=== PATIENT | female | born 1975 | race Caucasian/White ===

== ENCOUNTER 2018-08-29 19:44 | Emergency (ER) | payer OTHER ==
--- NOTE | 2018-08-29 20:13 | EDPHY ---
H & P Time Seen by Provider: 08/29/18 19:55 HPI/ROS: CHIEF COMPLAINT: Right arm redness History by patient HISTORY OF PRESENT ILLNESS: 43-year-old woman [id number] presents complaining of a arm redness and swelling. Patient states that she has and played trauma for routine lab checks 4 days prior to arrival. She noticed 1 day ago some redness and swelling around her hand and wrist and then this has progressed over the past 24 hr to include red streaking up her arm towards the site of the blood draw. She complains of some mild itching but no pain. She denies any fever, chills, nausea or vomiting. She has a history of open fracture and her right ring finger which was complicated by a Pseudomonas infection several years ago. She is concerned that the infection may have been reactivated in her hand. REVIEW OF SYSTEMS: As in HPI, and all other systems reviewed and are negative Smoking Status: Current every day smoker Physical Exam: General Appearance: Alert and no distress. Head: Normocephalic, atraumatic Eyes: Pupils equal and round no injection. Extraocular movements are intact. Musculoskeletal: Neck is supple and nontender. Extremities: Right arm with lymphangitis in the forearm extending from the wrist towards but not reaching the AC. There is some mild swelling and redness and warmth on the dorsum never hand and wrist area which is nontender. She has full range of motion of her wrist elbow at all fingers. Distal sensation is intact. Distal cap refills less than 2 sec. Radial pulses 2+ and equal to the left. There is no obvious thumb lesion or area of swelling or erythema in her AC where she says the blood draw was done. Skin: No rashes or lesions except as described above. No axillary lymph nodes. Constitutional: Initial Vital Signs Temperature (C) 37.3 C 08/29/18 19:51 Heart Rate 98 08/29/18 19:51 Respiratory Rate 16 08/29/18 19:51 Blood Pressure 142/116 H 08/29/18 19:51 O2 Sat (%) 94 08/29/18 19:51 O2 Delivery Mode Room Air Allergies/Adverse Reactions: acetaminophen [From Vicodin] Allergy (Verified 08/29/18 19:54) Pt reports rash and SOB cephalexin Allergy (Verified 08/29/18 19:54) Pt reports rash and SOB hydrocodone bitartrate [From Vicodin] Allergy (Verified 08/29/18 19:54) Pt reports rash and SOB Home Medications: Medication Instructions Recorded Clindamycin HCl [Clindamycin] 300 mg PO TID #30 cap 08/29/18 MDM/Departure - MDM Medications Given: Discontinued Medications Clindamycin (Cleocin 150 Mg Prepack#6) 1 btl TAKEHOME EDNOW ONE PRN Reason: Protocol Stop: 08/29/18 20:17 Last Admin: 08/29/18 20:23 Dose: 1 btl ED Course/Re-evaluation: 43-year-old woman presents with mild cellulitis of right hand and lower forearm. Patient is afebrile nontoxic-appearing. This point appears safe to treat her as an outpatient with close follow-up. Patient is started on clindamycin as she is allergic to Keflex. We discussed return precautions. Patient has been seen by Dr. Benson at [facility] and I recommending recheck with them in 24-48 hours and sooner in the ER if there is any worsening prior to that on the antibiotics. Patient understands and is agreeable to this plan. - Depart Disposition: Home, Routine, Self-Care Clinical Impression: Cellulitis Qualifiers: Site of cellulitis: extremity Site of cellulitis of extremity: upper extremity Laterality: right Qualified Code(s): L03.113 - Cellulitis of right upper limb Condition: Good Instructions: Clindamycin (By mouth), Cellulitis (ED) Additional Instructions: You were seen by Dr. Maggei Givens today. We are treating you for a skin infection on her arm. Take clindamycin, an antibiotic as prescribed. I recommend taking probiotics which she can get over- the-counter in between doses of antibiotic. Return immediately if the redness seems to be increasing, spreading or getting more painful or he develops a high fever. Otherwise please have your hand rechecked on Friday with her primary care physician Dr. Jones or their partners. Please have your blood pressure recheck by your regular doctor. Return for any worsening or new concerns. Prescriptions: Clindamycin HCl [Clindamycin] 300 mg PO TID #30 cap Referrals: NONE *PRIMARY CARE P,. [Primary Care Provider] - As per Instructions Montrell Yuan DO [Doctor of Osteopathy] - As per Instructions
[2018-08-29] MEDS ORDERED: CLINDAMYCIN 150MG PREPACK#6 BTL TAKEHOME ONE (20:16)
[2018-08-29 20:57] VITALS: BP 142/119
== END 2018-08-29 20:25 | disposition home or self-care (01) ==
LOC: CED 19:44
DX: L03.113 Cellulitis of right upper limb (principal)
CPT/HCPCS: 99283-ER